=== PATIENT | male | born 1970 | race Caucasian/White ===

== ENCOUNTER 2017-06-06 12:49 | Emergency (ER) | payer MEDICAID ==
[~2017-06-06] VITALS: Ht 170.2 cm; Wt 74.0 kg
[~2017-06-06 12:49] MED LIST: CLON2TAB16 PO; DIVA500T2 PO; DONE10TA14 PO; DONE10TA56 PO; ESCI20TA PO; FLUO20CA8 PO; OLAN10TA7 PO; ZIPR20CA2 PO
[2017-06-06 13:24] LABS: HEMATOCRIT 49.3 % (39.2-51.8); HEMOGLOBIN 16.3 g/dL (13.7-18.0); WHITE BLOOD COUNT 6.7 x10^3/uL (3.4-10)
[2017-06-06] MEDS ORDERED: ONDANSETRON 2MG/ML, 2ML IVPush ONE (13:30)
[2017-06-06] MEDS ORDERED: SODIUM CHLORIDE 0.9% 1,000ML IVBOLUS ONE (13:30)
[2017-06-06] MEDS ORDERED: SODIUM CHLORIDE FLUSH 10ML SYR IVF ONE (13:30)
[2017-06-06 13:36] LABS: ASPARTATE AMINO TRANSFERASE 19 U/L (15-37); BLOOD UREA NITROGEN 8 mg/dL (7-18)
[2017-06-06] MEDS ORDERED: ONDANSETRON 2MG/ML, 2ML ONE (14:10)
[2017-06-06] MEDS ORDERED: DIPH1TAB PO (14:24)
[2017-06-06] MEDS ORDERED: BENZ0.5T PO (14:24)
[2017-06-06] MEDS ORDERED: HALO0.5T PO (14:24)
[2017-06-06] MEDS ORDERED: QUET100T PO (14:24)
[2017-06-06] MEDS ORDERED: FLUO20CA8 PO (14:24)
[2017-06-06] MEDS ORDERED: QUET50TA PO (14:24)
[2017-06-06] MEDS ORDERED: OMNIPAQUE 350 MG/ML, 100ML BOTTLE ONE (15:50)
[2017-06-06] MEDS ORDERED: PINK LADY ENEMA 1,000 ML PR ONE (16:30)
[2017-06-06 18:58] VITALS: BP 115/85
== END 2017-06-06 19:00 | disposition home or self-care (01) ==
LOC: ED 15:03
DX: K59.00 Constipation, unspecified (principal); G30.9 Alzheimer's disease, unspecified
CPT/HCPCS: 36415; 74177; 80053; 83690; 85025; 85610; 96361; 96374; 99285; J2405; J7030; Q9967